=== PATIENT | female | born 1930 | race Caucasian/White ===

== ENCOUNTER 2017-09-06 18:57 | Emergency (ER) | payer MEDICARE, OTHER ==
[~2017-09-06] VITALS: Ht 152.4 cm; Wt 44.0 kg
[2017-09-06 19:05] VITALS: Ht 152.4 cm; Wt 44.0 kg
[2017-09-06 20:59] LABS: URINE BLOOD (Dip) POC Negative (NEGATIVE)
[2017-09-06 21:15] VITALS: TEMP 98.2
[2017-09-06] MEDS ORDERED: ONDANSETRON 4 MG INJ IV STA (21:17)
[2017-09-06] MEDS ORDERED: SOD CHLORIDE 0.9% 1,000 ML IV STA (21:17)
[2017-09-06] MEDS ORDERED: morphine 4 MG/ML VIAL IV STA (21:17)
[2017-09-06 21:33] LABS: BASOPHILS % 0.4 % (0.0-2.0); EOSINOPHILS # 0.3 10^3/ul (0.0-0.5); EOSINOPHILS % 5.1 % (0.0-7.0); HEMATOCRIT 29.7 % (37.0-47.0); LYMPHOCYTES # 2.1 10^3/ul (0.8-2.9); LYMPHOCYTES % 38.4 % (15.0-51.0); MEAN CORPUSCULAR HEMOGLOBIN 30.7 pg (29.0-33.0); MEAN CORPUSCULAR HGB CONC 33.7 g/dl (32.0-37.0); MEAN CORPUSCULAR VOLUME 91.1 fl (82.0-101.0); MEAN PLATELET VOLUME 10.3 fl (7.4-10.4); MONOCYTE # 0.7 10^3/ul (0.3-0.9); MONOCYTES % 12.3 % (0.0-11.0); NEUTROPHIL # 2.4 10^3/ul (1.6-7.5); NEUTROPHILS % 43.6 % (39.0-77.0); PLATELET COUNT 289 10^3/UL (140-415); RED BLOOD COUNT 3.26 10^6/ul (4.20-5.40); RED CELL DISTRIBUTION WIDTH 14.7 % (11.5-14.5); WHITE BLOOD COUNT 5.4 10^3/ul (4.8-10.8)
[2017-09-06] MEDS ORDERED: FER325 PO (21:43)
[2017-09-06] MEDS ORDERED: LEVO75TA65 PO (21:44)
[2017-09-06] MEDS ORDERED: LOSA25TA5 PO (21:45)
[2017-09-06 21:47] LABS: ADD UMIC NO; UR ASCORBIC ACID NEGATIVE (NEGATIVE); UR BILIRUBIN (Dip) NEGATIVE (NEGATIVE); UR BLOOD (Dip) NEGATIVE (NEGATIVE); UR CLARITY CLEAR (CLEAR); UR COLOR STRAW (YELLOW); UR GLUCOSE (Dip) NEGATIVE (NEGATIVE); UR KETONES (Dip) NEGATIVE (NEGATIVE); UR LEUKOCYTE ESTERASE (Dip) NEGATIVE Leu/ul (NEGATIVE); UR NITRITE (Dip) NEGATIVE (NEGATIVE); UR TOTAL PROTEIN (Dip) NEGATIVE (NEGATIVE); UR UROBILINOGEN (Dip) NEGATIVE (NEGATIVE)
[2017-09-06 22:11] LABS: ALANINE AMINOTRANSFERASE 36 IU/L (13-69); ALBUMIN 4.3 g/dl (3.3-4.9); ALBUMIN/GLOBULIN RATIO 1.13; ALKALINE PHOSPHATASE 82 IU/L (42-121); ANION GAP 12 (8-16); ASPARTATE AMINO TRANSFERASE 32 IU/L (15-46); BILIRUBIN,INDIRECT 0.4 mg/dl (0-1.1); BILIRUBIN,TOTAL 0.4 mg/dl (0.2-1.3); BLOOD UREA NITROGEN 25 mg/dl (7-20); CALCIUM 9.1 mg/dl (8.4-10.2); CARBON DIOXIDE 28 mmol/L (21-31); CHLORIDE 105 mmol/L (97-110); CREATININE 0.92 mg/dl (0.44-1.00); GLUCOSE 91 mg/dl (70-220); POTASSIUM 4.4 mmol/L (3.5-5.1); SODIUM 141 mmol/L (135-144); TOTAL PROTEIN 8.1 g/dl (6.1-8.1)
[2017-09-06 22:19] LABS: TROPONIN-I < 0.012 ng/ml (0.00-0.12)
[2017-09-06] MEDS ORDERED: DOCU-144 PO (23:32)
[2017-09-06] MEDS ORDERED: HYDR-906 PO (23:32)
[2017-09-06] MEDS ORDERED: ONDA4TAB14 PO (23:32)
--- NOTE | 2017-09-06 23:34 | RADRPT ---
PROCEDURE: CT Abdomen and Pelvis without contrast. CLINICAL INDICATION: Abdominal pain. TECHNIQUE: A CT scan of the abdomen and pelvis was performed without intravenous contrast. Umana l and sagittal reformatted images were generated. Images were reviewed on a high-resolution PACS wor kstation. CTDIvol: 4.41 mGy. DLP: 205.86 mGy-cm. One or more of the following dose reduction techniques were used: - Automated exposure control. - Adjustment of the mA and/or kV according to patient size. - Use of iterative reconstruction technique. COMPARISON: None. FINDINGS: There are mild atelectatic changes in the lower lungs. Evaluation of the abdominal and pelvic viscera is limited by the lack of oral and intravenous contra st. The liver is unremarkable. The gallbladder is normal in appearance. The common bile duct is not dila bradley. The spleen is not enlarged. No pancreatic lesion is identified and there is no pancreatic ducta l dilatation. The adrenal glands are unremarkable. The kidneys are normal in size. There is no perinephric fat stranding. No hydronephrosis is seen. Th ere are scattered bilateral renal parenchymal calcifications measuring up to 5 mm on the left, nonsp ecific. The small and large bowel are normal in caliber. There is no bowel wall thickening. There is severe descending and sigmoid colon diverticulosis. The appendix is not identified. The urinary bladder is unremarkable. The patient is status post hysterectomy. No adnexal mass is se en. No lymphadenopathy is identified. There is no ascites. No pneumoperitoneum is seen. There are minima l arterial calcifications. There is a 1.0 x 1.8 cm ovoid subcutaneous density in the umbilical region, possibly a sebaceous cys t. No suspicious osseous lesion is idenitified. There is mild age indeterminate L1 compression fracture . Grade 1 degenerative L1 retrolisthesis and L4 anterolisthesis is noted. IMPRESSION: 1. No inflammation, mass, or lymphadenopathy. 2. No hydronephrosis. There are scattered bilateral renal parenchymal calcifications measuring up t o 5 mm on the left, nonspecific. 3. The appendix is not identified. If there is concern for appendicitis, close clinical follow-up is recommended. 4. Severe descending and sigmoid colon diverticulosis. 5. Status post hysterectomy. 6. 1.8 cm ovoid subcutaneous density in the umbilical region, possibly a sebaceous cyst. 7. Mild age indeterminate L1 compression fracture. This could be further evaluated with MRI if clin ically warranted. 8. Grade 1 degenerative L1 retrolisthesis and L4 anterolisthesis. RPTAT: HTAR .Jak Lr MD, Date Time Electronically viewed and signed by .Jak Lr MD, on 09/06/2017 23:33 .R/
--- NOTE | 2017-09-06 23:42 | ERD ---
ER Documentation Chief Complaint Date/Time DATE: 09/06/17 TIME: 23:41 Chief Complaint upper abd pain x 2 days, vomiting HPI Patient is a 87-year-old female with hypertension who presents with abdominal pain. She said that she has very strong abdominal pain which comes and goes. It started yesterday. She tried drinking tea and eating an apple. She had mild chest pain as well. She denies fevers. She has no nausea, vomiting, or diarrhea. Upon review of old medical records the patient one previous visit to the ER in 2006. ROS All systems reviewed and are negative except as per history of present illness. Medications Home Meds Active Scripts Docusate Sodium* (Colace*) 100 Mg Capsule, 100 MG PO TID, #30 CAP Prov:DEVON MARIA MD 09/06/17 Ondansetron (Ondansetron Odt) 4 Mg Tab.rapdis, 4 MG PO Q6H Y for NAUSEA AND/OR VOMITING, #10 TAB Prov:DEVON MARIA MD 09/06/17 Hydrocodone/Acetaminophen (Burton 5-325 Tablet) 1 Each Tablet, 1 TAB PO Q6H Y for PAIN, #7 TAB Prov:DEVON MARIA MD 09/06/17 Reported Medications Losartan Potassium* (Losartan Potassium*) 25 Mg Tablet, 25 MG PO DAILY, TAB 09/06/17 Levothyroxine Sodium* (Levoxyl*) 75 Mcg Tablet, 75 MCG PO BEFORE BREAKFAST, #30 TAB 09/06/17 Ferrous Sulfate* (Ferrous Sulfate*) 325 Mg Tabec, 325 MG PO DAILY, TAB 09/06/17 Allergies Allergies: Coded Allergies: Penicillins (Verified Allergy, Severe, REDNESS, 09/06/17) PMhx/Soc History of Surgery: No Anesthesia Reaction: No Hx Neurological Disorder: No Hx Respiratory Disorders: No Hx Cardiac Disorders: Yes (HTN) Hx Psychiatric Problems: No Hx Miscellaneous Medical Probl: Yes (HYPOTHYROIDISM) Hx Alcohol Use: No Hx Substance Use: No Hx Tobacco Use: No Smoking Status: Never smoker FmHx Family History: No diabetes Physical Exam Vitals Vital Signs Date Time Temp Pulse Resp B/P Pulse Ox O2 Delivery O2 Flow Rate FiO2 09/06/17 21:15 98.2 55 20 163/70 100 Room Air 09/06/17 19:05 98.2 66 20 179/74 95 Physical Exam Const: Mild distress secondary to pain Head: Atraumatic Eyes: Normal Conjunctiva ENT: Normal External Ears, Nose and Mouth. Neck: Full range of motion..~ No meningismus. Resp: Clear to auscultation bilaterally Cardio: Regular rate and rhythm, no murmurs Abd: Soft, non tender, non distended. Normal bowel sounds Skin: No petechiae or rashes Back: No midline or flank tenderness Ext: No cyanosis, or edema Neur: Awake and alert Psych: Normal Mood and Affect Result Diagram: 09/06/17212009/06/172120 Results 24 hrs Laboratory Tests Test 09/06/17 20:50 09/06/17 21:07 09/06/17 21:21 Urine Color STRAW Urine Clarity CLEAR Urine pH 5.0 Urine Specific [place] 1.010 Urine Ketones NEGATIVEmg/dL Urine Nitrite NEGATIVEmg/dL Urine Bilirubin NEGATIVEmg/dL Urine Urobilinogen NEGATIVEmg/dL Urine Leukocyte Esterase NEGATIVELeu/ul Urine Hemoglobin NEGATIVEmg/dL Urine Glucose NEGATIVEmg/dL Urine Total Protein NEGATIVEmg/dl Bedside Urine pH (LAB) 5.5 Bedside Urine Protein (LAB) Negative Bedside Urine Glucose (UA) Negative Bedside Urine Ketones (LAB) Negative Bedside Urine Blood Negative Bedside Urine Nitrite (LAB) Negative Bedside Urine Leukocyte Esterase (L Negative White Blood Count 5.410^3/ul Red Blood Count 3.2610^6/ul Hemoglobin 10.0g/dl Hematocrit 29.7% Mean Corpuscular Volume 91.1fl Mean Corpuscular Hemoglobin 30.7pg Mean Corpuscular Hemoglobin Concent 33.7g/dl Red Cell Distribution Width 14.7% Platelet Count 16805^3/UL Mean Platelet Volume 10.3fl Neutrophils % 43.6% Lymphocytes % 38.4% Monocytes % 12.3% Eosinophils % 5.1% Basophils % 0.4% Nucleated Red Blood Cells % 0.0/100WBC Neutrophils # 2.410^3/ul Lymphocytes # 2.110^3/ul Monocytes # 0.710^3/ul Eosinophils # 0.310^3/ul Basophils # 0.010^3/ul Nucleated Red Blood Cells # 0.010^3/ul Sodium Level 141mmol/L Potassium Level 4.4mmol/L Chloride Level 105mmol/L Carbon Dioxide Level 28mmol/L Anion Gap 12 Blood Urea Nitrogen 25mg/dl Creatinine 0.92mg/dl Glucose Level 91mg/dl Calcium Level 9.1mg/dl Total Bilirubin 0.4mg/dl Direct Bilirubin 0.00mg/dl Indirect Bilirubin 0.4mg/dl Aspartate Amino Transf (AST/SGOT) 32IU/L Alanine Aminotransferase (ALT/SGPT) 36IU/L Alkaline Phosphatase 82IU/L Troponin I < 0.012ng/ml Total Protein 8.1g/dl Albumin 4.3g/dl Globulin 3.80g/dl Albumin/Globulin Ratio 1.13 Lipase 268U/L Current Medications Medications (Trade) Dose Ordered Sig/Castro Route PRN Reason Start Time Stop Time Status Last Admin Dose Admin Sodium Chloride (NS) 1,000 ml @ 1,000 mls/hr Q1H STAT IV 09/06/17 21:17 09/06/17 22:16 DC 09/06/17 21:41 Morphine Sulfate (morphine) 4 mg ONCE STAT IV 09/06/17 21:17 09/06/17 21:19 DC Ondansetron HCl (Zofran Inj) 4 mg ONCE STAT IV 09/06/17 21:17 09/06/17 21:19 DC Procedures/MDM EKG read by me: Rate/Rhythm: First-degree AV block with bradycardia at a rate of 51 Intervals: Prolonged ID interval Impression: First-degree AV block with bradycardia CT abdomen pelvis shows no obvious surgical process per radiology. Patient is an 87-year-old female who presents with abdominal pain. She had abdominal pain which was coming and going. Her EKG shows first-degree AV block with bradycardia. CT scan of the abdomen pelvis shows no signs of surgical process. I doubt appendicitis, cholecystitis, pancreatitis, or bowel obstruction. I doubt AAA. The patient will be discharged but will need to follow-up closely with her primary doctor Dr. Pugh within 24 hours for reevaluation. She can return sooner for any worsening symptoms. The patient understands the plan is okay for discharge at this time. The patient will be given copies of her laboratory studies and CT scan report prior to discharge. Departure Diagnosis: Primary Impression: Abdominal pain Abdominal location: generalized Qualified Code: R10.84 - Generalized abdominal pain Condition: Fair Patient Instructions: Abdominal Pain Referrals: ROBERT PUGH Additional Instructions: Llame al doctor ALICE jones lissette AMANDA PARA DENTRO DE 1-2 HAGER.Dgale a la secretaria que nosotros le instruimos hacer esta amanda.Avise o llame si ramirez condicin se empeora antes de la amanda. Regresa aqui si peor o no mejor. DEVON MARIA MD Sep 06, 2017 23:42
[2017-09-07 00:42] VITALS: BP 170/6; PULSE 63; RESP 16
== END 2017-09-07 00:45 | disposition home or self-care (01) ==
LOC: E/R 18:57
DX: R10.84 Generalized abdominal pain (principal); I10 Essential (primary) hypertension; E03.9 Hypothyroidism, unspecified
CPT/HCPCS: 36415; 74176; 80053; 81003; 83690; 84484; 85025; 99285; J7030; 93005; J2270; J2405

== ENCOUNTER 2017-11-05 19:38 | Emergency (ER) | payer MEDICARE, OTHER ==
[~2017-11-05] VITALS: Ht 152.4 cm; Wt 45.5 kg
[~2017-11-05 19:38] MED LIST: DOCU-144 PO; FER325 PO; HYDR-906 PO; LEVO75TA65 PO; LOSA25TA5 PO; ONDA4TAB14 PO
[2017-11-05 19:57] VITALS: Ht 152.4 cm; Wt 45.5 kg
[2017-11-05] MEDS ORDERED: HYDROCODONE/APAP (10/325) TAB PO ONE (23:30)
[2017-11-05] MEDS ORDERED: DIPHTH/TET/ACEL PERTUSS (ADULT) 0.5 ML VIAL IM* ONE (23:30)
--- NOTE | 2017-11-06 00:01 | RADRPT ---
PROCEDURE: X-ray right ankle. CLINICAL INDICATION: Injury to the right ankle status post fall. Reference marker is directed towa rds the lateral malleolus. TECHNIQUE: 3 views right ankle. COMPARISON: None FINDINGS: Soft tissue swelling over the anterior and bilateral ankle. Avulsion fracture at the medial aspect o f the medial malleolus compatible with injury involving the deltoid ligament. This is seen only on a single view. The mortise is symmetric. Remaining osseous structures without evident acute fracture. Plantar and p osterior dorsal calcaneal enthesophytes. IMPRESSION: Avulsion fracture at the medial aspect of the medial malleolus, with soft tissue swelling over the a nterior and bilateral ankle. RPTAT: UU Physician Myrtle Date Time Electronically viewed and signed by Physician Myrtle on 11/06/2017 00:01 RS/
--- NOTE | 2017-11-06 00:09 | ERD ---
ER Documentation Chief Complaint Chief Complaint Rt ankle pain s/p fall 30min [employer]. abrasion to left burt. -KO.Denies CP, SOB HPI This is a very pleasant female who has right ankle pain status post fall 1930 minutes ago. Denies head trauma or loss conscious. Complains of pain on ambulation. No fevers no chills. No nausea no vomiting. Pain is mild to moderate intensity. No other current complaints. ROS All systems reviewed and are negative except as per history of present illness. Medications Home Meds Active Scripts Docusate Sodium* (Colace*) 100 Mg Capsule, 100 MG PO TID, #30 CAP Prov:DEVON MARIA MD 09/06/17 Hydrocodone/Acetaminophen ([place]end[place] 5-325 Tablet) 1 Each Tablet, 1 TAB PO Q6H Y for PAIN, #7 TAB Prov:DEVON MARIA MD 09/06/17 Reported Medications Losartan Potassium* (Losartan Potassium*) 25 Mg Tablet, 25 MG PO DAILY, TAB 09/06/17 Levothyroxine Sodium* (Levoxyl*) 75 Mcg Tablet, 75 MCG PO BEFORE BREAKFAST, #30 TAB 09/06/17 Ferrous Sulfate* (Ferrous Sulfate*) 325 Mg Tabec, 325 MG PO DAILY, TAB 09/06/17 Discontinued Scripts Ondansetron (Ondansetron Odt) 4 Mg Tab.rapdis, 4 MG PO Q6H Y for NAUSEA AND/OR VOMITING, #10 TAB Prov:DEVON MARIA MD 09/06/17 Allergies Allergies: Coded Allergies: Penicillins (Verified Allergy, Severe, REDNESS, 11/05/17) PMhx/Soc History of Surgery: No Anesthesia Reaction: No Hx Neurological Disorder: No Hx Respiratory Disorders: No Hx Cardiac Disorders: Yes (HTN) Hx Psychiatric Problems: No Hx Miscellaneous Medical Probl: Yes (HYPOTHYROIDISM) Hx Alcohol Use: No Hx Substance Use: No Hx Tobacco Use: No Smoking Status: Never smoker Physical Exam Vitals Vital Signs Date Time Temp Pulse Resp B/P Pulse Ox O2 Delivery O2 Flow Rate FiO2 11/05/17 19:57 98.2 58 18 149/70 97 Physical Exam Const: [] Head: Atraumatic Eyes: Normal Conjunctiva ENT: Normal External Ears, Nose and Mouth. Neck: Full range of motion..~ No meningismus. Resp: Clear to auscultation bilaterally Cardio: Regular rate and rhythm, no murmurs Abd: Soft, non tender, non distended. Normal bowel sounds Skin: No petechiae or rashes Back: No midline or flank tenderness Ext: No cyanosis, or edema Neur: Awake and alert Psych: Normal Mood and Affect Results 24 hrs Current Medications Medications (Trade) Dose Ordered Sig/Castro Route PRN Reason Start Time Stop Time Status Last Admin Dose Admin Diphtheria/ Tetanus/Acell Pertussis (Adacel) 0.5 ml ONCE ONCE IM* 11/05/17 23:30 11/05/17 23:31 DC 11/05/17 23:20 Acetaminophen/ Hydrocodone Bitart (Henderson (10)) 1 tab ONCE ONCE PO 11/05/17 23:30 11/05/17 23:31 DC 11/05/17 23:21 Procedures/MDM X-ray Ankle 3V Interpreted by me: Bones: Avulsion fracture medial malleolus Joints: No dislocation Splint Assessment: Neurovascularly intact post splint placement with good fit. Medical decision making: Very pleasant patient with avulsion fracture. Placed in a splint. Follow-up with orthopedics as outpatient. Departure Diagnosis: Primary Impression: Fall Encounter type: initial encounter Qualified Code: W19.XXXA - Fall, initial encounter Additional Impression: Avulsion fracture of ankle Encounter type: initial encounter Fracture type: closed Laterality: right Qualified Code: S82.891A - Closed avulsion fracture of right ankle, initial encounter Condition: Stable MARIANO HAMILTON Nov 06, 2017 00:09
[2017-11-06] MEDS ORDERED: HYDR-902 PO ×2 (00:10→00:31)
[2017-11-06 00:17] VITALS: BP 158/63; PULSE 68; RESP 16
== END 2017-11-06 00:33 | disposition home or self-care (01) ==
LOC: E/R 19:38
DX: S82.891A Other fracture of right lower leg, initial encounter for closed fracture (principal); I10 Essential (primary) hypertension; E03.9 Hypothyroidism, unspecified; W18.39XA Other fall on same level, initial encounter; Y92.9 Unspecified place or not applicable; Z23 Encounter for immunization
CPT/HCPCS: 90471; 90715